=== PATIENT | female | born 1995 | race Two or more races ===

== ENCOUNTER 2024-07-04 13:05 | Emergency (ER) | payer OTHER, MEDICAID ==
[~2024-07-04] VITALS: Ht 170.2 cm; Wt 108.0 kg
--- NOTE | 2024-07-04 13:17 | ED.PDOC ---
Psychiatric HPI Comments HPI: Poor Historian. PMHx: DM, thyroid, anxiety, OCD, schizophrenia, depression PSHx: Denies. Social hx: No alcohol, illicit drug, or tobacco use. Meds: Levothyroxine, Fluoxetine, Buspirone, Metformin, Aripiprazole, Vit. D, Biotin, Multivitamin Allergies: NKDA. Vitals T: 98.2F RR: 18 HR: 98 BP: 119/63 O2: 97% on RA 29Y F presents to ED for chief complaint panic attacks and suicidal ideation for one month without plan. Pt is unable to care for self. Pt has been sleeping excessively and has not showered. Pt has been admitted 4 times to a facility. Patient states compliance with all her medications. Denies any acute pain in her body. Denies any overdosing. REVIEW OF SYSTEMS: CONSTITUTIONAL: Denies acute: fever, diaphoresis, chills, generalized weakness. HEAD: Denies acute: headache, photophobia Eyes: Denies acute: Double vision, vision loss, eye pain, eye discharge. EARS: Denies acute: tinnitus, hearing loss, ear discharge, ear pain, THROAT: Denies acute: sore throat, swelling, difficulty swallowing , pain with swallowing, change in voice. NECK: Denies acute: neck pain, neck swelling, stiff neck. HEART: Denies acute : chest pain, palpitations, LUNGS: Denies acute: SOB, wheezing, cough, hemoptysis ABDOMEN: Denies acute: abdominal pain, Nausea, Vomiting, diarrhea, melena , hematemesis, hematochezia SKIN: Denies acute: rash, redness, lesions, itchiness. EXTREMITIES: Denies acute: calf pain, numbness, tingling, weakness, denies pain in extremity. Denies acute: Low back pain. Neuro: Denies acute: focal neurological deficit, motor or sensory focal neurological deficit, tremors, seizure like activity, confusion, dizziness, change in mental status, loss of bowel or bladder function, cauda equina like symptoms. : Denies acute: dysuria, hematuria, flank pain, increase in urinary frequency. PSYCH: Denies acute: hallucination, homicidal ideation. FEMALE: Denies acute: abnormal vaginal bleeding, foul odor, unusual discharge. PHYSICAL EXAM: General: no acute distress, awake and alert. Head: normocephalic, atraumatic. Neck: supple, trachea is midline, no swelling. Throat: Normal phonation. Eyes:, no erythema, no purulent discharge, no proptosis, no icterus. Heart: regular rate, regular rhythm, no significant murmur appreciated. Lungs: no apparent respiratory distress, Able to speak in full sentences. No wheezing, no rhonchi, no crackles. No stridors Clear to auscultation bilaterally. Abdomen: non tender to palpation, non distended, soft, no guarding, no rebound, + bowel sounds. Neuro: Awake, Alert, oriented to name, self, situation, follows commands GCS=15. Speech is normal. Skin: no petechia, no purpura, no cyanosis, non-pale, not jaundice. Lower extremities: --no - Pitting edema no deformity, no focal swelling, no calf TTP. Makes eye contact. moves all four extremities. Time Seen by MD: 13:15 Reviewed Notes: Nurses Notes, Medications, Allergies Information Source: Patient Mode of Arrival: Ambulatory Severity: Unable to Care for Self Severity of Pain: None Severity of Mental Status: None Severity of Symptoms: Mild Timing: Months Duration: Since onset Presents with: Depression, Anxiety, Unclear Thinking, Suicidal Ideation Circumstance: Other Current substance abuse: Other History of: Depression, Anxiety, Schizophrenia, Suicidal Attempt Quality: Hopelessness Associated signs and symptoms: Depression, Anxiety Past Medical History PAST MEDICAL HISTORY: Anxiety, Depression, DM, Schizophrenia, Thyroid Past Medical History (Other): OCD Surgical History: Denies all surgeries 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 Was a procedure done?: No Psych Differential Dx Psych. Differential Dx: Anxiety, Bipolar Disorder, Depression, Hopeless, Panic Disorder, Schizoprenia, Suicidal OD Differential Dx: Anxiety, Conversion Disorder, Hallucinations, Homicidal, Panic Disorder, Personality Disorder X-Ray, Labs, Meds, VS Vital Signs Date Time Temp Pulse Resp B/P (MAP) Pulse Ox O2 Delivery O2 Flow Rate FiO2 07/04/24 13:19 98.2 98 18 119/63 (81) 97 Lab Test 07/04/24 14:10 07/04/24 13:46 Range/Units Urine Color Yellow Yellow Urine Clarity Clear Clear Urine pH 5.5 5.0-9.0 Urine Specific [place] 1.042 H 1.001-1.035 Urine Protein Trace H Negative Urine Ketones Trace Negative Urine Blood 2+ H Negative /uL Urine Nitrite Negative Negative Urine Bilirubin Negative Negative Urine Urobilinogen Normal Negative mg/dL Urine Leukocyte Esterase 2+ Negative /uL Urine RBC 6 0 - 4 /hpf Urine WBC 6 0 - 5 /hpf Urine Squamous Epithelial Cells Few <5 /hpf Urine Bacteria Few H None Seen /hpf Urine Hyaline Casts Few 0 - 2 /lpf Urine Mucus Few None Seen Urine Glucose 4+ H Normal mg/dL White Blood Count 9.8 4.4-10.8 10^3/uL Red Blood Count 4.36 4.0-5.20 10^6/uL Hemoglobin 12.7 12.2-16.2 g/dL Hematocrit 37.5 36.0-46.0 % Mean Corpuscular Volume 86.0 80.0-100.0 fL Mean Corpuscular Hemoglobin 29.1 28.0-32.0 pg Mean Corpuscular Hemoglobin Concent 33.8 32.0-36.0 g/dL Red Cell Distribution Width 13.8 11.8-14.3 % Platelet Count 379 140-450 10^3/uL Mean Platelet Volume 7.4 6.9-10.8 fL Neutrophils (%) (Auto) 57.6 37.0-80.0 % Lymphocytes (%) (Auto) 32.5 10.0-50.0 % Monocytes (%) (Auto) 6.3 0.0-12.0 % Eosinophils (%) (Auto) 3.3 0.0-7.0 % Basophils (%) (Auto) 0.3 0.0-2.0 % Neutrophils # (Auto) 5.6 1.6-8.6 10 ^3/uL Lymphocytes # (Auto) 3.2 0.4-5.4 10 ^3/uL Monocytes # (Auto) 0.6 0-1.3 10 ^3/uL Eosinophils # (Auto) 0.3 0-0.8 10 ^3/uL Basophils # (Auto) 0 0-0.2 10 ^3/uL Nucleated Red Blood Cells 0.1 % Sodium Level 134 L 136-145 mmol/L Potassium Level 3.8 3.5-5.1 mmol/L Chloride Level 102 98-107 mmol/L Carbon Dioxide Level 23 20-31 mmol/L Anion Gap 9 5-15 Blood Urea Nitrogen 12 9-23 mg/dL Creatinine 0.76 0.550-1.02 mg/dL Glomerular Filtration Rate Calc 107 >90 mL/min BUN/Creatinine Ratio 15.8 10.0-20.0 Serum Glucose 363 H 74-106 mg/dL Calcium Level 9.9 8.7-10.4 mg/dL Magnesium Level 1.6 1.6-2.6 mg/dL Total Bilirubin 0.2 0.2-1.0 mg/dL Aspartate Amino Transferase (AST) 10 L 13-40 U/L Alanine Aminotransferase (ALT) 12 7-40 U/L Alkaline Phosphatase 117 H 46-116 U/L Total Protein 7.5 5.7-8.2 g/dL Albumin 4.2 3.2-4.8 g/dL Beta HCG, Quantitative 1.9 1.5-4.2 mIU/mL Time of 1ST Reevaluation: 13:45 Reevaluation 1ST: Unchanged Time of 2ND Reevaluation: 22:19 Reevaluation 2ND: Improved Patient Education/Counseling: Diagnosis, Treatment Family Education/Counseling: No Family Present Comments Patient has been medically cleared. Patient is awaiting social service consult and transferred to psychiatric facility for further evaluation and treatment. Patient has already been seen by tele psych. The care of this patient was signed out to my colleague Dr. Fam. Departure 1 Departure Time of Disposition: 15:08 Impression: Primary Impression: Suicidal ideation Additional Impressions: Panic attacks UTI (urinary tract infection) Patient needs psychiatric hold for evaluation Disposition: 30 STILL A PATIENT Condition: Stable Discharged With: Self Critical Care Note Critical Care Time?: No I personally scribed for JEFF PEDRAZA DO ([email or web address]) on 07/04/24 at 13:17. Electronically submitted by Cadence Swartz (Handseeing Information). I personally scribed for JEFF PEDRAZA DO ([email or web address]) on 07/04/24 at 13:29. Electronically submitted by Cadence Swartz ([email or web address]). JEFF PEDRAZA DO Jul 04, 2024 13:17
[2024-07-04 14:08] LABS: Basophils # (auto) 0 10 ^3/uL (0-0.2); Basophils % (auto) 0.3 % (0.0-2.0); Eosinophils # (auto) 0.3 10 ^3/uL (0-0.8); Eosinophils % (auto) 3.3 % (0.0-7.0); Hematocrit 37.5 % (36.0-46.0); Hemoglobin 12.7 g/dL (12.2-16.2); Lymphocytes # (auto) 3.2 10 ^3/uL (0.4-5.4); Lymphocytes % (auto) 32.5 % (10.0-50.0); Mean Corpuscular Hemoglobin 29.1 pg (28.0-32.0); Mean Corpuscular Hgb Conc. 33.8 g/dL (32.0-36.0); Monocytes # (auto) 0.6 10 ^3/uL (0-1.3); Monocytes % (auto) 6.3 % (0.0-12.0); Neutrophils # (auto) 5.6 10 ^3/uL (1.6-8.6); Neutrophils % (auto) 57.6 % (37.0-80.0); Nucleated Red Blood Cells % 0.1 %; Platelet Count (auto) 379 10^3/uL (140-450); Red Blood Cells 4.36 10^6/uL (4.0-5.20); Red Cell Distribution Width 13.8 % (11.8-14.3); White Blood Cell 9.8 10^3/uL (4.4-10.8)
[2024-07-04 14:31] LABS: Urine Bacteria FEW /hpf (None Seen); Urine Blood 2+ /uL (Negative); Urine Clarity Clear (Clear); Urine Color Yellow (Yellow); Urine Hyaline Cast FEW /lpf (0 - 2); Urine Mucus FEW (None Seen); Urine Protein, UAD TRACE (Negative); Urine Specific Gravity 1.042 (1.001-1.035); Urine Urobilinogen Normal (Negative); Urine WBC 6 /hpf (0 - 5); Urine pH 5.5 (5.0-9.0)
[2024-07-04 14:40] LABS: Alanine Aminotransferase 12 U/L (7-40); Albumin 4.2 g/dL (3.2-4.8); Alkaline Phosphatase 117 U/L (46-116); Anion Gap 9 (5-15); Aspartate Aminotransferase 10 U/L (13-40); BUN/Creatinine Ratio 15.8 (10.0-20.0); Bilirubin, Total 0.2 mg/dL (0.2-1.0); Blood Urea Nitrogen 12 mg/dL (9-23); Calcium 9.9 mg/dL (8.7-10.4); Carbon Dioxide 23 mmol/L (20-31); Chloride 102 mmol/L (98-107); Glucose 363 mg/dL (74-106); Magnesium 1.6 mg/dL (1.6-2.6); Potassium 3.8 mmol/L (3.5-5.1); Sodium 134 mmol/L (136-145); Total Protein 7.5 g/dL (5.7-8.2)
[2024-07-04] MEDS ORDERED: cefTRIAXone 1GM/50ML D5W 50 ML IV ONE (15:15)
--- NOTE | 2024-07-04 16:43 | DVHINCON2 ---
Date of Service if different f: Jul 04, 2024 Time of Service: 16:34 Consultation ([facility]) Consulting Physician: SAMREEN ARANA MD Labs Laboratory Tests Test 07/04/24 13:46 07/04/24 14:10 White Blood Count 9.8 10^3/uL (4.4-10.8) Red Blood Count 4.36 10^6/uL (4.0-5.20) Hemoglobin 12.7 g/dL (12.2-16.2) Hematocrit 37.5 % (36.0-46.0) Mean Corpuscular Volume 86.0 fL (80.0-100.0) Mean Corpuscular Hemoglobin 29.1 pg (28.0-32.0) Mean Corpuscular Hemoglobin Concent 33.8 g/dL (32.0-36.0) Red Cell Distribution Width 13.8 % (11.8-14.3) Platelet Count 379 10^3/uL (140-450) Mean Platelet Volume 7.4 fL (6.9-10.8) Neutrophils (%) (Auto) 57.6 % (37.0-80.0) Lymphocytes (%) (Auto) 32.5 % (10.0-50.0) Monocytes (%) (Auto) 6.3 % (0.0-12.0) Eosinophils (%) (Auto) 3.3 % (0.0-7.0) Basophils (%) (Auto) 0.3 % (0.0-2.0) Neutrophils # (Auto) 5.6 10 ^3/uL (1.6-8.6) Lymphocytes # (Auto) 3.2 10 ^3/uL (0.4-5.4) Monocytes # (Auto) 0.6 10 ^3/uL (0-1.3) Eosinophils # (Auto) 0.3 10 ^3/uL (0-0.8) Basophils # (Auto) 0 10 ^3/uL (0-0.2) Nucleated Red Blood Cells 0.1 % Sodium Level 134 mmol/L (136-145) Potassium Level 3.8 mmol/L (3.5-5.1) Chloride Level 102 mmol/L (98-107) Carbon Dioxide Level 23 mmol/L (20-31) Anion Gap 9 (5-15) Blood Urea Nitrogen 12 mg/dL (9-23) Creatinine 0.76 mg/dL (0.550-1.02) Glomerular Filtration Rate Calc 107 mL/min (>90) BUN/Creatinine Ratio 15.8 (10.0-20.0) Serum Glucose 363 mg/dL (74-106) Calcium Level 9.9 mg/dL (8.7-10.4) Magnesium Level 1.6 mg/dL (1.6-2.6) Total Bilirubin 0.2 mg/dL (0.2-1.0) Aspartate Amino Transf (AST/SGOT) 10 U/L (13-40) Alanine Aminotransferase (ALT/SGPT) 12 U/L (7-40) Alkaline Phosphatase 117 U/L (46-116) Total Protein 7.5 g/dL (5.7-8.2) Albumin 4.2 g/dL (3.2-4.8) Beta HCG, Quantitative 1.9 mIU/mL (1.5-4.2) Urine Color Yellow (Yellow) Urine Clarity Clear (Clear) Urine pH 5.5 (5.0-9.0) Urine Specific [place] 1.042 (1.001-1.035) Urine Protein Trace (Negative) Urine Ketones Trace (Negative) Urine Blood 2+ /uL (Negative) Urine Nitrite Negative (Negative) Urine Bilirubin Negative (Negative) Urine Urobilinogen Normal mg/dL (Negative) Urine Leukocyte Esterase 2+ /uL (Negative) Urine RBC 6 /hpf (0 - 4) Urine WBC 6 /hpf (0 - 5) Urine Squamous Epithelial Cells Few /hpf (<5) Urine Bacteria Few /hpf (None Seen) Urine Hyaline Casts Few /lpf (0 - 2) Urine Mucus Few (None Seen) Urine Glucose 4+ mg/dL (Normal) Appearance: Stated age Psychomotor activity: Restless Behavioral: Cooperative Eye contact: Appropriate Speech: WNL Affect: Mood Congruent, Labile Mood: Anxious Thought processes: Linear/Goal-directed Thought content: Paranoid Suicidal ideations: Absent Homicidal ideations: Absent Orientation: Person, Place, Time, Situation Intellect: Average Abstractability: WNL Concentration: Adequate Attention: Adequate Judgement: WNL Insight: Fair Vitals Vital Signs Date Time Temp Pulse Resp B/P (MAP) Pulse Ox O2 Delivery O2 Flow Rate FiO2 07/04/24 13:19 98.2 98 18 119/63 (81) 97 Treatment plan discussed: With staff Medication adjusted: Yes Labs ordered: No Psychotherapy provided: No Type: 72 hour hold History of Present Illness Reason for Consult : psychiatric evaluation PER ED PHYSICIAN: 29Y F presents to ED for chief complaint panic attacks and naman cidal ideation for one month without plan. Pt is unable to care for self. Pt has been sleeping excessively and has not showered. Pt has been admitted 4 times to a facility. Patient states compliance with all her medications. Denies any acute pain in her body. Denies any overdosing. PSYCHIATRIST HPI: The patient was seen and evaluated at [facility] ED via telepsychiatry platform. 29 yr old female reported she has been having panic attacks and ends up sleeping all day and not taking care of herself. She stated it has been going on for a couple weeks so she wanted to get seen for it. She said she first had a panic attack about two months ago. She had paranoid thoughts which caused her a lot of anxiety. She feels like something pulls on her when she walks. She has thoughts that people are trying to hurt her. She feels uncomfortable returning home as she feels like she has been unable to manage her anxiety and feels like she will hurt herself if it worsens. She denied having suicidal and homicidal ideation and auditory and visual hallucinations. Past Psychiatric History : Diagnosed with schizophrenia, depression, anxiety since 2009. 4-5 hospitalizations, last in 2018. One past suicide attempts by overdose. Saw psychiatrist a couple weeks. Past Medical History: hypothyroid, DM type 2 Current Medications: Levothyroxine Buspar Fluoxetine Aripiprazole Metformin 750 mg BID Substance use: Drinks alcohol . Denied other substance use. Social History : Lives in [place] with parents and sister. Never , no children. Unemployed. On SSI. Diagnosis: SCHIZOPHRENIA Formulation: This 29 yr old female appears to suffer from schizophrenia and has increased inability to care for herself due to increased panic and paranoia. She may benefit from admission to behavioral health unit for further evaluation, stablization and treatment. She meets criteria for psychiatric hospitalization on basis of grave disability and danger to self. Plan: 1. Transfer to behavioral health unit when bed available. 2. Legal-initiate 5150 involuntary hold for danger to self and grave disability. She has paranoia which is leading to panic attacks and inability to care for herself. 3. Medication: She does not know her current dosages. Recommend contact parents to determine dose and then start the following medications: Levothyroxine Buspirone Fluoxetine Aripiprazole Metformin 750mg BID 4. Please contact psychiatry if further follow up or reevaluation is desired. 5. Case discussed with ED JEROD Holland. Assessment/Diagnosis/Plan Reviewed: Labs, Medications, Previous Orders SAMREEN ARANA MD Jul 04, 2024 15:05
[2024-07-04] MEDS: cefTRIAXone SOD 1,000 MG VL IM ONE (18:58)
--- NOTE | 2024-07-05 12:40 | ED.PDOC ---
Departure 1 Departure Time of Disposition: 12:39 (Patient was resting comfortably and she is hemodynamically stable. Patient accepted to [facility]) Impression: Primary Impression: Suicidal ideation Additional Impressions: Panic attacks Patient needs psychiatric hold for evaluation UTI (urinary tract infection) Qualified Codes: N30.00 - Acute cystitis without hematuria Disposition: [facility] Condition: Stable Discharged With: Self EBONIE CLIFTON MD Jul 05, 2024 12:40
[2024-07-05 12:57] VITALS: BP 124/72; TEMP 98
[2024-07-05 12:58] VITALS: PULSE 89; RESP 14; O2SAT 96
== END 2024-07-05 13:13 | disposition short-term general hospital (02) ==
LOC: ER 13:05
DX: R45.851 Suicidal ideations (principal); R10.2 Pelvic and perineal pain; N39.0 Urinary tract infection, site not specified; E11.9 Type 2 diabetes mellitus without complications; F20.9 Schizophrenia, unspecified; F32.A Depression, unspecified; E03.9 Hypothyroidism, unspecified; F41.0 Panic disorder [episodic paroxysmal anxiety]; F42.9 Obsessive-compulsive disorder, unspecified; Z79.84 Long term (current) use of oral hypoglycemic drugs
CPT/HCPCS: 36415; 80053; 81001; 83735; 84702; 85025